=== PATIENT | female | born 1965 | race Caucasian/White ===

== ENCOUNTER → 2017-08-12 | Outpatient (CLI) | payer OTHER ==
[~2017-08-12] MED LIST: CYCL10 PO; ESTR2; HYDACE5 PO; NAPR500 PO; OMEPRAZOLE MAGN20 MG; SPIR25; Zantac150 MG
== END ==
LOC: LAB SRC 15:43
DX: R30.0 Dysuria (principal)
CPT/HCPCS: 87086

== ENCOUNTER → 2017-09-23 | Outpatient (CLI) | payer OTHER ==
[2017-09-25 11:58] LABS: HPV Genotype 16 Not Detected (NOTDET); HPV Genotype 18 Not Detected (NOTDET)
[2017-10-01 14:13] LABS: HPV High Risk Other Not Detected (NOTDET)
== END ==
LOC: LAB SRC 11:26
PROVIDERS: Nurse Practitioner Family
DX: Z01.419 Encounter for gynecological examination (general) (routine) without abnormal findings (principal)
CPT/HCPCS: 87624; G0123

== ENCOUNTER 2018-03-23 07:03 | Day surgery (SDC) | payer OTHER ==
[~2018-03-23] VITALS: Ht 154.9 cm; Wt 89.9 kg
[~2018-03-23 07:03] MED LIST changes: -ESTR2; -OMEPRAZOLE MAGN20 MG; -SPIR25; -Zantac150 MG
[2018-03-23] MEDS ORDERED: ESTR2 (07:32)
[2018-03-23] MEDS ORDERED: SPIR25 (07:32)
[2018-03-23] MEDS ORDERED: OMEPRAZOLE MAGN20 MG (07:33)
[2018-03-23] MEDS ORDERED: Zantac150 MG (07:33)
== END 2018-03-23 09:51 | disposition home or self-care (01) ==
LOC: ORSCSDS 07:03
PROVIDERS: Internal Medicine Gastroenterology
PROC: 0DBH8ZX Excision of Cecum, Via Natural or Artificial Opening Endoscopic, Diagnostic (ICD-10-PCS; principal; 2018-03-23 08:30)
PROC: 0DBM8ZX Excision of Descending Colon, Via Natural or Artificial Opening Endoscopic, Diagnostic (ICD-10-PCS; principal; 2018-03-23 08:30)
PROC: 0DBP8ZX Excision of Rectum, Via Natural or Artificial Opening Endoscopic, Diagnostic (ICD-10-PCS; principal; 2018-03-23 08:30)
PROC: 0DBK8ZX Excision of Ascending Colon, Via Natural or Artificial Opening Endoscopic, Diagnostic (ICD-10-PCS; principal; 2018-03-23 08:30)
DX: Z12.11 Encounter for screening for malignant neoplasm of colon (principal); D12.0 Benign neoplasm of cecum; K62.1 Rectal polyp; D12.4 Benign neoplasm of descending colon; D12.2 Benign neoplasm of ascending colon; Z87.891 Personal history of nicotine dependence; K57.30 Diverticulosis of large intestine without perforation or abscess without bleeding; K21.9 Gastro-esophageal reflux disease without esophagitis; K64.8 Other hemorrhoids; Z79.899 Other long term (current) drug therapy
CPT/HCPCS: J0330; J1980; J2250; J2405; J7120

== ENCOUNTER 2019-05-26 07:07 | Day surgery (SDC) | payer OTHER ==
[~2019-05-26] VITALS: Ht 154.9 cm; Wt 93.2 kg
[~2019-05-26 07:07] MED LIST changes: +ESTR2; +OMEPRAZOLE MAGN20 MG; +SPIR25; +Zantac150 MG; +Zantac150 MG PO
[2019-05-26] MEDS ORDERED: OMEPRAZOLE20 MG (07:32)
--- NOTE | 2019-05-26 07:50 | NUR ---
05/26/19 0750 Josep Schwartz 1ST IV ATTEMT IN RIGHT HAND VEIN BLEW-CMT
== END 2019-05-26 09:27 | disposition home or self-care (01) ==
LOC: ORSCSDS 07:07
PROVIDERS: Internal Medicine Gastroenterology
PROC: 0DBH8ZX Excision of Cecum, Via Natural or Artificial Opening Endoscopic, Diagnostic (ICD-10-PCS; principal; 2019-05-26 08:30)
PROC: 0DBL8ZX Excision of Transverse Colon, Via Natural or Artificial Opening Endoscopic, Diagnostic (ICD-10-PCS; principal; 2019-05-26 08:30)
DX: Z12.11 Encounter for screening for malignant neoplasm of colon (principal); Z86.010 Personal history of colon polyps; D12.0 Benign neoplasm of cecum; K63.5 Polyp of colon; K57.30 Diverticulosis of large intestine without perforation or abscess without bleeding; K64.8 Other hemorrhoids; G47.33 Obstructive sleep apnea (adult) (pediatric); E78.5 Hyperlipidemia, unspecified; Z87.891 Personal history of nicotine dependence; Z79.899 Other long term (current) drug therapy; K21.9 Gastro-esophageal reflux disease without esophagitis; E66.01 Morbid (severe) obesity due to excess calories; Z68.38 Body mass index [BMI] 38.0-38.9, adult
CPT/HCPCS: 88305; J2250; J2704; J7120

== ENCOUNTER 2020-12-25 16:06 | Observation (INO) | payer OTHER ==
[~2020-12-25] VITALS: Ht 154.9 cm; Wt 94.8 kg
[~2020-12-25 16:06] MED LIST changes: +ERGO400 PO; +FAMO40 PO; +LOSA25 PO; +OMEPRAZOLE20 MG
[2020-12-25 18:41] LABS: BASOPHILS ABSOLUTE AUTO 0.06 K/mm3 (0.00-0.23); BASOPHILS PERCENT AUTO 1 % (0-2); EOSINOPHILS PERCENT AUTO 2 % (0-6); Hematocrit 42.9 % (33.0-51.0); Hemoglobin 14.7 g/dL (11.5-16.0); IMMATURE GRAN ABSOLUTE AUTO 0.06 K/mm3 (0.00-0.10); IMMATURE GRAN PERCENT AUTO 1 % (0-1); LYMPHOCYTES ABSOLUTE AUTO 3.22 K/mm3 (0.84-5.20); LYMPHOCYTES PERCENT AUTO 32 % (21-46); MONOCYTES ABSOLUTE AUTO 0.85 K/mm3 (0.16-1.47); MONOCYTES PERCENT AUTO 9 % (4-13); Mean Corpuscular HGB 30.7 pg (26.0-34.0); Mean Corpuscular HGB Conc 34.3 g/dL (31.5-36.5); Mean Corpuscular Volume 90 fL (80-100); Mean Platelet Volume 10.2 fL (9.1-12.4); NEUTROPHILS ABSOLUTE AUTO 5.54 K/mm3 (1.96-9.15); NEUTROPHILS PERCENT AUTO 56 % (41-73); Platelet Count 293 K/mm3 (150-400); RDW Coefficient Variation 12.5 % (11.7-14.2); RDW Standard Deviation 41.1 fL (35.1-46.3); Red Blood Cell Count 4.79 M/mm3 (3.80-5.20); White Blood Cell Count 9.93 K/mm3 (4.00-11.30)
[2020-12-25 19:00] LABS: Alanine Aminotransfer (ALT/SGP 114 U/L (12-78); Albumin, Blood 4.2 g/dL (3.4-5.0); Albumin/Globulin Ratio 1.2 (0.8-1.8); Alk Phos 84 U/L (50-136); Anion Gap 6 mmol/L (6-16); Aspartate Aminotrans (AST/SGOT 45 U/L (12-37); Bilirubin, Total 0.5 mg/dL (0.1-1.0); Blood Urea Nitrogen 13 mg/dL (8-24); Bun/Creatinine Ratio 15.7 (12.0-20.0); CO2, Blood 24 mmol/L (21-32); Calcium, Blood 9.9 mg/dL (8.5-10.1); Chloride, Blood 109 mmol/L (98-108); Creatinine, Blood 0.83 mg/dL (0.40-1.00); Globulin, Blood 3.5 g/dL (2.2-4.0); Glomerular Filtration Rate >60 (60-); Glucose, Blood 91 mg/dL (70-99); Potassium, Blood 3.9 mmol/L (3.5-5.5); Sodium, Blood 139 mmol/L (136-145); Total Protein, Blood 7.7 g/dL (6.4-8.2)
[2020-12-25 19:11] LABS: Source, Urine Voided
[2020-12-25 19:16] LABS: Appearance, Urine Hazy (Clear); Bilirubin, Urine Neg (Neg); Blood, Urine Neg (Neg); Color, Urine Yellow (P-Yellow); Glucose Qualitative, Urine Neg (Neg); Ketones, Urine Neg (Neg); Leukocyte Esterase, Urine 1+ (Neg); Nitrite, Urine Neg (Neg); Protein, Urine 1+ (Neg); Urobilinogen, Urine 1+ (Normal)
[2020-12-25 19:27] LABS: Bacteria Many /hpf; Red Blood Cells, Urine Not Seen /hpf (0-2); Squamous Epithelial Cells Many /hpf (Few)
[2020-12-25] MEDS ORDERED: CIME400 PO (21:28)
[2020-12-25] MEDS ORDERED: OMEP20ER PO (21:28)
--- NOTE | 2020-12-25 22:05 | NUR ---
PT ADMITTED FROM ER FOR CHOLECYSTITIS AT APPROX 2205. PT A&O X4. VS WNL. C/O RUQ ABD THAT SHE RATES 6/10. PT STATES THIS IS TOLERABLE. PT REPORTS LAST PO INTAKE WAS AROUND NOON EARLIER TODAY. REPORTS OCC NAUSEA, HOWEVER NO EMESIS. DENIES AT THIS TIME. PT INDEPENDENT IN ROOM. VOIDED UPON ARRIVAL. PLAN FOR IVF AND IV ABX PER EMAR. WILL KEEP PT NPO AFTER MIDNIGHT PER ORDERS.
[2020-12-25 23:26] LABS: SARS-Cov-2 (COVID-19) PCR, MMC NEGATIVE (NEGATIVE)
--- NOTE | 2020-12-26 04:03 | NUR ---
SHIFT SUMMARY: PT HAS BEEN STABLE SINCE ADMIT. IVF+IV ABX INFUSING PER EMAR. PT HAS BEEN NPO SINCE MIDNIGHT. PAIN MANAGED WITH 0.5MG DILAUDID Q2. PT INDEPENDENT IN ROOM. VOIDING A SMALL AMOUNT EACH TIME. URINE DARK YELLOW. PLAN FOR SURGERY TODAY.
[2020-12-26 04:52] LABS: BASOPHILS ABSOLUTE AUTO 0.04 K/mm3 (0.00-0.23); BASOPHILS PERCENT AUTO 1 % (0-2); EOSINOPHILS ABSOLUTE AUTO 0.23 K/mm3 (0.00-0.68); EOSINOPHILS PERCENT AUTO 3 % (0-6); Hematocrit 42.4 % (33.0-51.0); Hemoglobin 13.9 g/dL (11.5-16.0); IMMATURE GRAN ABSOLUTE AUTO 0.04 K/mm3 (0.00-0.10); IMMATURE GRAN PERCENT AUTO 1 % (0-1); LYMPHOCYTES ABSOLUTE AUTO 3.53 K/mm3 (0.84-5.20); LYMPHOCYTES PERCENT AUTO 44 % (21-46); MONOCYTES ABSOLUTE AUTO 0.76 K/mm3 (0.16-1.47); MONOCYTES PERCENT AUTO 10 % (4-13); Mean Corpuscular HGB 30.5 pg (26.0-34.0); Mean Corpuscular HGB Conc 32.8 g/dL (31.5-36.5); Mean Corpuscular Volume 93 fL (80-100); Mean Platelet Volume 10.4 fL (9.1-12.4); NEUTROPHILS ABSOLUTE AUTO 3.43 K/mm3 (1.96-9.15); NEUTROPHILS PERCENT AUTO 43 % (41-73); Platelet Count 278 K/mm3 (150-400); RDW Coefficient Variation 12.7 % (11.7-14.2); RDW Standard Deviation 43.8 fL (35.1-46.3); Red Blood Cell Count 4.55 M/mm3 (3.80-5.20); White Blood Cell Count 8.03 K/mm3 (4.00-11.30)
[2020-12-26 05:15] LABS: Alanine Aminotransfer (ALT/SGP 109 U/L (12-78); Albumin, Blood 3.8 g/dL (3.4-5.0); Albumin/Globulin Ratio 1.3 (0.8-1.8); Alk Phos 70 U/L (50-136); Anion Gap 2 mmol/L (6-16); Aspartate Aminotrans (AST/SGOT 50 U/L (12-37); Bilirubin, Total 0.6 mg/dL (0.1-1.0); Blood Urea Nitrogen 14 mg/dL (8-24); Bun/Creatinine Ratio 15.4 (12.0-20.0); CO2, Blood 30 mmol/L (21-32); Calcium, Blood 9.1 mg/dL (8.5-10.1); Chloride, Blood 108 mmol/L (98-108); Creatinine, Blood 0.91 mg/dL (0.40-1.00); Glomerular Filtration Rate >60 (60-); Glucose, Blood 89 mg/dL (70-99); Potassium, Blood 4.5 mmol/L (3.5-5.5); Sodium, Blood 140 mmol/L (136-145); Total Protein, Blood 6.8 g/dL (6.4-8.2)
--- NOTE | 2020-12-26 07:15 | NUR ---
RECVD REPORT FROM PREVIOUS SHIFT RN MEREDITH, PT SLEEPING IN BED, BED IN LOWEST POSITION, BED RAILS UP X 2, CALL LIGHT WITHIN REACH, WHITE BOARD UPDATED
--- NOTE | 2020-12-26 09:22 | NUR ---
pt's SO here in room with pt
--- NOTE | 2020-12-26 10:20 | NUR ---
dr krishna in room consulting with pt
--- NOTE | 2020-12-26 17:07 | NUR ---
shift summary: vss, no acute changes, pt rates pain at 4-5/10 following analgesia per mar. pt has had her SO visit her this shift, has appeared to be sleeping upon nurse rounding periodically. pt awaiting surgical intervention. Daysurgery RNs have been in the pt's room prepping for surgery. Pt has remained NPO this shift, has received antinause medication per mar x 1.
--- NOTE | 2020-12-27 03:59 | NUR ---
SHIFT SUMMARY ADMITTED FOR ACUTE ALLYSSA. PLAN TO HAVE SURGERY [facility]. PT REPORTS ABD PAIN, PAIN MANAGED WITH 0.2MG DILAUDID. PT HAS APPEARED LESS ANXIOUS LAST NIGHT. SHE HAS BEEN SLEEPING T/O SHIFT. PT REMAIN O2 SAT OVER 95% BUT UPON EXERTION AND REPOSITIONING, SHE DESATS AT 85% BUT QUICKLY RECOVERED AFTER INCREASED OF 3L FROM 2L O2 N/C. AFEBRILE. VSS. PT TOLERATING PO LAST NIGHT. NPO AFTER MIDNIGHT FOR AN ANTICIPATED SURGICAL PROCEDURE TODAY. ABX ADMINISTERD. LR INFUSING. CALL LIGHT WITHIN REACH. WILL PROVIDE REPORT TO ONCOMING NURSE.
--- NOTE | 2020-12-27 04:11 | NUR ---
SHIFT SUMMARY ADMITTED FOR ACUTE ALLYSSA. PT REPORTS MODERATE PAIN. PAIN MANAGED WITH 0.5MG DIALUADID. SHE ALSO VOMITED ONCE LAST NIGHT. MEDICATED WITH ZOFRAN, AND IT DID IMPROVED T/O SHIFT. SHE IS INDEPENDENT IN ROOM. VOIDING WITHOUT ANY ISSUES/DIFFICULTY. SHE IS ALERT AND ORIENTED X4. NPO AFTER MIDNIGHT FOR SURGICAL PROCEDURE TODAY. CALL LIGHT WITHIN REACH. WILL PROVIDE REPORT TO ONCOMING NURSE.
--- NOTE | 2020-12-27 13:55 | NUR ---
THE PATIENT WAS BROUGHT TO D/S FOR HER PROCEDURE. Ambulatory in Day Surgery Surgical site prepped with 2% Chlorhexidine cloth wipe. History, Chart, Medications and Allergies reviewed before start of procedure.Lungs clear T/O to Auscultation. Patient confirms NPO status and agrees with scheduled surgery. Pre-Op teaching done. Pt verbalizes understanding.
--- NOTE | 2020-12-27 15:41 | NUR ---
12/27/20 1541 Alysia Garcia SKIN PREPPED BY ORDANDERSON WITH ORD.CATY
--- NOTE | 2020-12-27 17:35 | NUR ---
SHIFT SUMMARY: POD 0 LAP ALLYSSA PATIENT CAME BACK FROM PACU TODAY 12/27/20 AT 1710. PATIENT IS ALERT AND ORIENTED X4. VS ARE WNL AND IS ON 2L OXYGEN NC. PAIN IS MANAGED WITH 0.5 DILAUDID IV AT THIS TIME. THE 4 STERI STRIPS ON HER ABD ARE C/D/I. ABD IS TENDER TO TOUCH BUT HAS HYPERACTIVE BOWEL TONES. DENIES ANY NUMBNESS OR TINGLING. SHE IS ABLE TO WIGGLE FINGERS AND TOES WHEN ASKED. SHE IS CURRENTLY LAYING IN BED WITH TV ON AND BOYFRIEND AT BEDSIDE. CALL LIGHT WITHIN REACH. THE PLAN IS TO ADVANCE DIET TOLERATED AND HAVE PAIN UNDER CONTROL BEFORE DISCHARGE.
--- NOTE | 2020-12-28 04:40 | NUR ---
SHIFT SUMMARY POD#1. AAOX4. DISCOMFORT CONTROLLED WITH 1 NORCO Q4H + 0.5MG IV DILAUDID X1 FOR BREAKTHROUGH, NO NAUSEA/EMESIS. ABD INCISIONS C/D/I, NO DRAINAGE. INDEPENDENT IN ROOM. GOOD PO INTAKE + OUTPUT. IVF + ABX PER ORDERS. PT RESTING WELL THIS AM. CONTINUE TO ENCOURAGE AMBULATION TOLERATED. PT CURRENTLY RESTING WELL IN BED WITH CALL LIGHT IN REACH.
[2020-12-28] MEDS ORDERED: OXYC5 PO (12:10)
--- NOTE | 2020-12-28 12:20 | NUR ---
DISCHARGE NOTE: PATIENT WAS EDUCATED ON DISCHARGE INSTRUCTIONS. SHE VERBALIZED UNDERSTANDING OF INSTRUCTIONS. SHE IS ALERT AND ORIENTED X4. VS ARE WNL AND IS ON RA. PAIN IS MANAGED WITH PO NARCOTICS. SHE HAS HER HARD PERSCRIPTIONS IN THE INSTRUCTION FOLDER. PATIENT IS TOLERATING PO INTAKE, VOIDING, AND IS PASSING GAS. HER 4 LAP SITES ON HER ABD ARE C/D/I. SHE HAS HER ITEMS GATHERED AND IS DRESSED. HER SIGNIFICANT OTHER IS PICKING HER UP TO TAKE HER HOME. SHE IS WALKING OUT TO THE CAR NOW. IV WAS TAKEN OUT AND WAS WNL.
== END 2020-12-28 12:22 | disposition home or self-care (01) ==
LOC: ER 16:06 → SURS 21:12
PROVIDERS: Physician Assistant; Surgery; ADMIT Surgery
PROC: BF03YZZ Plain Radiography of Gallbladder and Bile Ducts using Other Contrast (ICD-10-PCS; principal; 2020-12-27 14:30)
PROC: 0FT44ZZ Resection of Gallbladder, Percutaneous Endoscopic Approach (ICD-10-PCS; principal; 2020-12-27 14:30)
DX: K80.00 Calculus of gallbladder with acute cholecystitis without obstruction (principal); K82.8 Other specified diseases of gallbladder; R00.1 Bradycardia, unspecified; G89.29 Other chronic pain; Z87.891 Personal history of nicotine dependence; Z88.8 Allergy status to other drugs, medicaments and biological substances; Z20.822 Contact with and (suspected) exposure to COVID-19
CPT/HCPCS: 36415; 74300; 80053; 81001; 83690; 85025; 88304; 93005; 93010; 94760; 96365; 96366; 96375; 99285-25; A9270; C1729; G0378; J1100; J1170; J1885; J2250; J2405; J2543; J2704; J2710; J3010; J7120; U0004